=== PATIENT | female | born 1980 | race Caucasian/White ===

== ENCOUNTER 2025-03-02 04:43 | Emergency (ER) | payer OTHER ==
[2025-03-02 05:02] VITALS: TEMP 96.4
[2025-03-02] MEDS ORDERED: TORAdol 30 mg Injection ONE (05:13)
[2025-03-02] MEDS ORDERED: Zofran 4 MG/2 ML VIAL ONE (05:13)
[2025-03-02] MEDS ORDERED: Sodium Chloride 0.9% 1000 ML 1,000 ML ONE (05:14)
[2025-03-02] MEDS: Sodium Chloride 0.9% 1000 ML 1,000 ML IV STA (05:16)
[2025-03-02] MEDS: Zofran 4 MG/2 ML VIAL IV ONE (05:17)
[2025-03-02] MEDS: TORAdol 30 mg Injection IV ONE (05:17)
[2025-03-02 05:23] LABS: Absolute Neutrophil Ct (ANC) 6.45 x10^3/uL (1.56-6.13); BASOPHIL % 0.8 % (0.1-1.2); Basophil (Absolute #) 0.07 x10^3/uL (0.01-0.08); Eosinophil % 0.8 % (0.7-5.8); Eosinophil (Absolute #) 0.07 x10^3/uL (0.04-0.36); Hematocrit 38.5 % (34.1-44.9); Hemoglobin 12.7 g/dL (11.2-15.7); IMMATURE GRAN # 0.06 x10^3u/L (0.001-0.031); IMMATURE GRAN % 0.7 % (0.001-0.429); Lymphocyte (Absolute #) 1.38 x10^3/uL (1.18-3.74); Lymphocytes % 16.3 % (19.3-51.7); Mean Cell Volume 85.6 fL (79.4-94.8); Mean Corpuscular Hemoglobin 28.2 pg (25.6-32.2); Mean Platelet Volume 10.5 fL (9.4-12.3); Monocyte (Absolute #) 0.44 x10^3/uL (0.24-0.86); Monocytes % 5.2 % (4.7-12.5); Neutrophil % 76.2 % (34.0-71.1); Platelet Count 198 x10^3/uL (182-369); Red Cell Distribution Width 13.9 % (11.7-14.4); White Blood Count 8.5 x10^3/uL (3.98-10.04)
[2025-03-02 05:38] LABS: ALBUMIN 4.2 g/dL (3.5-5.0); ANION GAP 14.2 MEQ/L (5-15); BILIRUBIN,TOTAL 0.3 mg/dL (0.2-1.3); Calcium 9.4 mg/dL (8.4-10.2); Creatinine 1 0.74 mg/dL (0.52-1.04); EST GLOMERULAR FILTRATION RATE 102.3 ML/MIN; Potassium 3.9 mmol/L (3.5-5.1); Total Protein 7.2 g/dL (6.3-8.2)
--- NOTE | 2025-03-02 06:08 | ERPHSYRPT ---
- History of Present Illness Source: patient Exam Limitations: no limitations Patient Subjective Stated Complaint: pt reports approx 0300 she woke with left leg pain and shaking, reports sudden onset of headache and vomiting soon after. pt denies injury or accident. Triage Nursing Assessment: pt is aox3, pupils perrl, speech is clear, pt answers questions appropriately, pt is ambulatory to room with no difficulties, afebrile, pt vomiting upon exam, resps easy and non labored, cap refill < 3 seconds, radial pulses strong and equal, pt skin pink warm dry. Hx Tetanus, Diphtheria Vaccination/Date Given: Yes Hx Influenza Vaccination/Date Given: No Hx Pneumococcal Vaccination/Date Given: No Immunizations Up to Date: Yes <BEULAH JANE - Last Filed: 03/02/25 07:52> <OTILIO GEE - Last Filed: 03/03/25 01:30> - History of Present Illness Physician History: Patient woke up this morning and said her head felt heavy. She said that she began basically having some seizure-like activity in her body. It was coarse tremors Left leg. She said she was unable to walk or speak. She was conscious and was able to watch at all occur. She had an episode somewhat similar to this about a month ago where she was driving. She said herLeft leg started shaking and she felt very similar. The episode today lasted just a few minutes but then she said that she felt confused and had heaviness in her head. She has never had problems like this before except for once last month which was described earlier. It was more brief and only involving the lower extremities.She has a headache today. She does not have any fever or chills. Nothing makes symptoms better or worse. When she got here her headache was about a 7.She said basically feels like a diffuse pressure.She has no other complaints. She has no fever chills or infectious symptoms. She does have some nausea and vomited. (BEULAH JANE) Allergies/Adverse Reactions: No Known Drug Allergies Allergy (Unverified 03/02/25 05:03) Home Medications: Bupropion HCl Xl 150 mg [Wellbutrin XL 150 MG] 150 mg PO DAILY 03/02/25 [History] Estradiol 1 mg [Estrace 1 mg] 2 mg PO DAILY 03/02/25 [History] Travel Risk - International Travel Have you traveled outside of the country in past 3 weeks: No - Emerging Infectious Disease Are you exhibiting symptoms associated with any current EIDs: No <BEULAH JANE - Last Filed: 03/02/25 07:52> - Review of Systems Constitutional: No Symptoms Eyes: No Symptoms Ears, Nose, & Throat: No Symptoms Respiratory: No Symptoms Musculoskeletal: No Symptoms Skin: No Symptoms <BEULAH JANE - Last Filed: 03/02/25 07:52> - Past Medical History Pertinent Past Medical History: Yes Psycho-Social History: Depression Other Medical History: estrogen-HRT - Past Surgical History Past Surgical History: Yes Female Surgical History: Hysterectomy - Female History Hx Last Menstrual Period: hyst Hx Now: No - Social History Smoking Status: Former smoker Exposure to second hand smoke: No Drug Use: none - Social Determinants of Health Will the patient participate in the screening: Unable to obtain <BEULAH JANE - Last Filed: 03/02/25 07:52> - Physical Exam General Appearance: no apparent distress Eye Exam: PERRL/EOMI Ears, Nose, Throat Exam: normal ENT inspection Respiratory Exam: normal breath sounds, lungs clear, No chest tenderness Cardiovascular Exam: regular rate/rhythm, normal heart sounds Gastrointestinal/Abdomen Exam: soft, normal bowel sounds, No tenderness Back Exam: normal inspection Extremity Exam: normal inspection Neurologic Exam: alert, oriented x 3, cooperative, 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, normal mood/affect, nml cerebellar function, nml station & gait Skin Exam: normal color, warm, dry SpO2: 99 <BEULAH JANE - Last Filed: 03/02/25 07:52> - Nursing Vital Signs Nursing Vital Signs: Initial Vital Signs Temperature 96.4 F 03/02/25 04:46 Pulse Rate 82 03/02/25 04:46 Respiratory Rate 18 03/02/25 04:46 Blood Pressure 146/93 03/02/25 04:46 O2 Sat by Pulse Oximetry 99 03/02/25 04:46 Pain Scale Pain Intensity 2 - Course Nursing assessment & vital signs reviewed: Yes <OTILIO GEE - Last Filed: 03/03/25 01:30> Ordered Tests: Active Orders 24 hr Category Date Time Status HEAD WITHOUT CONTRAST [CT] Stat Exams 03/02/25 06:08 Completed CBC W DIFF Stat Lab 03/02/25 05:22 Completed CMP Stat Lab 03/02/25 05:22 Completed LIPASE Stat Lab 03/02/25 05:22 Completed Medication Summary Discontinued Medications Generic Name Dose Route Start Last Admin Trade Name Freq PRN Reason Stop Dose Admin Hydromorphone HCl 0.5 mg 03/02/25 07:27 03/02/25 07:39 Hydromorphone 1 Mg/1ml Inj IV 03/02/25 07:28 0.5 mg STAT ONE Administration Hydromorphone HCl Confirm 03/02/25 07:37 Hydromorphone 1 Mg/1ml Inj Administered 03/02/25 07:38 Dose 1 mg .ROUTE .STK-MED ONE Sodium Chloride 1,000 mls @ 999 mls/hr 03/02/25 05:07 03/02/25 06:40 Sodium Chloride 0.9% 1000 Ml IV 03/02/25 06:07 Infused .Q1H1M STA Infusion Sodium Chloride Confirm 03/02/25 05:14 Sodium Chloride 0.9% 1000 Ml Administered 03/02/25 05:15 Dose 1,000 mls @ ud .ROUTE .STK-MED ONE Ketorolac Tromethamine 30 mg 03/02/25 05:07 03/02/25 05:17 Ketorolac Tromethamine 30 Mg/Ml Inj IV 03/02/25 05:08 30 mg STAT ONE Administration Ketorolac Tromethamine Confirm 03/02/25 05:13 Ketorolac Tromethamine 30 Mg/Ml Inj Administered 03/02/25 05:14 Dose 30 mg .ROUTE .STK-MED ONE Ondansetron HCl 4 mg 03/02/25 05:07 03/02/25 05:17 Ondansetron Hcl 4 Mg/2 Ml Vial IV 03/02/25 05:08 4 mg STAT ONE Administration Ondansetron HCl Confirm 03/02/25 05:13 Ondansetron Hcl 4 Mg/2 Ml Vial Administered 03/02/25 05:14 Dose 4 mg .ROUTE .STK-MED ONE Prochlorperazine Edisylate 10 mg 03/02/25 07:28 03/02/25 07:40 Prochlorperazine Edisylate 10 Mg/2 Ml Vial IV 03/02/25 07:29 10 mg STAT ONE Administration Prochlorperazine Edisylate Confirm 03/02/25 07:37 Prochlorperazine Edisylate 10 Mg/2 Ml Vial Administered 03/02/25 07:38 Dose 10 mg .ROUTE .[facility]-MED ONE Lab/Rad Data: Laboratory Result Diagrams 03/02/25 05:22 03/02/25 05:22 Laboratory Results 03/02/25 03/02/25 Range/Units 05:22 05:22 WBC 8.5 (3.98-10.04) x10^3/uL RBC 4.50 (3.93-5.22) x10^6/uL Hgb 12.7 (11.2-15.7) g/dL Hct 38.5 (34.1-44.9) % MCV 85.6 (79.4-94.8) fL MCH 28.2 (25.6-32.2) pg MCHC 33.0 (32.2-35.5) g/dL RDW 13.9 (11.7-14.4) % Plt Count 198 (182-369) x10^3/uL MPV 10.5 (9.4-12.3) fL Gran % 76.2 H (34.0-71.1) % Immature Gran % (Auto) 0.7 H (0.001-0.429) % Nucleat RBC Rel Count 0.0 (0.00-0.2) % Eos # (Auto) 0.07 (0.04-0.36) x10^3/uL Immature Gran # (Auto) 0.06 H (0.001-0.031) x10^3u/L Absolute Lymphs (auto) 1.38 (1.18-3.74) x10^3/uL Absolute Monos (auto) 0.44 (0.24-0.86) x10^3/uL Absolute Nucleated RBC 0.00 (0.00-0.012) x10^3u/L Lymphocytes % 16.3 L (19.3-51.7) % Monocytes % 5.2 (4.7-12.5) % Eosinophils % 0.8 (0.7-5.8) % Basophils % 0.8 (0.1-1.2) % Absolute Granulocytes 6.45 H (1.56-6.13) x10^3/uL Basophils # 0.07 (0.01-0.08) x10^3/uL Sodium 142 (135-145) mmol/L Potassium 3.9 (3.5-5.1) mmol/L Chloride 108 H (98-107) mmol/L Carbon Dioxide 24 (22-30) mmol/L Anion Gap 14.2 (5-15) MEQ/L BUN 19 H (7-17) mg/dL Creatinine 0.74 (0.52-1.04) mg/dL Estimated GFR 102.3 ML/MIN Glucose 129 H (74-106) mg/dL Calcium 9.4 (8.4-10.2) mg/dL Total Bilirubin 0.30 (0.2-1.3) mg/dL AST 24 (14-36) U/L ALT 16 (0-35) U/L Alkaline Phosphatase 150 H (38-126) U/L Serum Total Protein 7.2 (6.3-8.2) g/dL Albumin 4.2 (3.5-5.0) g/dL Lipase 37 (23-300) U/L - Progress Progress: improved <BEULAH JANE - Last Filed: 03/02/25 07:52> <OTILIO GEE - Last Filed: 03/03/25 01:30> - Progress Progress Note: I gave the patient some IV fluids some Zofran and Toradol. Her symptoms improved a little bit.It sound like it may be a neurological issue. She could be having some sort of unusual seizure activity. And when to go ahead and get a CT of her head to make sure there is no space-occupying lesions or anything like that that could be responsible. If that is negative and is going to send her to a neurologist.She saw her physician for the first episode in which just involve the leg while she was driving.I do think that this is some sort of neurological issue.There is a large space-occupying mass on her CT with a Right midline shift.The patient is going to need to be transferred. I am going to turn the care over to Dr. Gee who is coming on.The patient will need to be most likely transferred. I called [facility]. 03/02/25 06:06 03/02/25 06:06 03/02/25 06:49 03/02/25 06:50 03/02/25 06:52 03/02/25 06:54 (BEULAH JANE) Patient endorsed to Dr. Gee at approximately [address] Gee advised of patient's CT finding and neurologic condition. At time of endorsement staff was working on transfer. I spoke to Dr. Schmitt neurosurgeon at [address] accepted patient at 7:18 AM. Plan of care discussed with patient. She agrees to transfer to [facility] for further evaluation and treatment. Patient reassessed. She is at her baseline. Patient states her headache was reoccurring. I ordered half milligram of hydromorphone and Compazine. Patient will be reassessed in the next hour. Patient currently resting comfortably. Vitals are stable. Patient conversant well-appearing and in no acute distress. Family at bedside. Transfer ETA is 10 AM. Complexity of problem addressed is moderate acute complicated. No critical care time. Complex of data reviewed and analyzed as extensive. Test ordered test reviewed results analyzed and correlated clinically with history and physical exam. Management discussed with neurosurgeon from [facility] who agrees with plan of care. Risk of complication and or risk of morbidity/mortality of patient management is high. Patient requires transfer to higher level of care. Vital stable. Time spent to transfer patient is approximately 15 minutes. Plan of care established for shared decision making. No social determinants of health present to impede follow-up. Portions of this note were created with voice recognition technology. There may be grammatical, spelling, punctuation or sound alike errors 03/02/25 07:56 (OTILIO GEE) - Departure Departure Disposition: Transfer Critical Care Time: No <BEULAH JANE - Last Filed: 03/02/25 07:52> <OTILIO GEE - Last Filed: 03/03/25 01:30> - Departure Clinical Impression: Seizure Condition: Fair Referrals: [facility] [NON-STAFF PHY W/O PRIVILEGES, NEUROLOGY] - Follow up/PCP as directed Instructions: Driving Restrictions, Seizures in adults - ED discharge instructions
--- NOTE | 2025-03-02 06:53 | XRAY ---
CLINICAL HISTORY: New onset seizure COMPARISON: None. TECHNIQUE: Multiple axial images are obtained from the skull base to the vertex without contrast. CT scan was performed according to ALARA (as low as reasonable achievable). FINDINGS: Approximately 5.4 x 4.2 cm sized well defined homogeneously hyperdense globular lesion is noted involving left high frontal lobe ; the left parafalcine region. It is abutting the Moderate perilesional edema is seen in the left frontal lobe white matter and centrum semiovale. Lesion causes mass effect on left lateral ventricle without midline shift The brain shows normal morphology, attenuation, and volume for age. No evidence of midline shift, extra axial collection, or hydrocephalus is noted. Ventricles, sulci, and basal cisterns are symmetric and normal in size and configuration. The cornelius-white matter differentiation is preserved. Visualized paranasal sinuses and mastoid air cells are well aerated. Orbital contents are within normal limits. Bony structures are intact. IMPRESSION: 1. Approximately 5.4 x 4.2 cm sized well defined homogeneously hyperdense globular lesion is noted involving left high frontal lobe ; the left parafalcine region. Moderate perilesional edema is seen in the left frontal lobe white matter and centrum semiovale.- could be extra-axial neoplastic lesion. Advice: MRI brain with contrast 2. No other abnormality seen. Electronically Signed by: Kan Acosta MD. (03/02/2025 06:49:03 EDT)
[2025-03-02] MEDS ORDERED: Compazine 10 MG/2 ML ONE (07:37)
[2025-03-02] MEDS ORDERED: Hydromorphone 1 mg/ml Injection ONE (07:37)
[2025-03-02] MEDS: Hydromorphone 1 mg/ml Injection IV ONE (07:39)
[2025-03-02] MEDS: Compazine 10 MG/2 ML IV ONE (07:40)
[2025-03-02 09:07] VITALS: PULSE 76; RESP 12; O2SAT 97
[2025-03-02 10:06] VITALS: BP 122/65
== END 2025-03-02 10:10 | disposition short-term general hospital (02) ==
LOC: ED 04:43
DX: R56.9 Unspecified convulsions (principal); G93.9 Disorder of brain, unspecified; R51.9 Headache, unspecified; R11.2 Nausea with vomiting, unspecified; Z79.899 Other long term (current) drug therapy
CPT/HCPCS: 36415; 70450; 80053; 83690; 85025; 96361; 96374; 96375; 99284; 99285; J1171; J1885; J2405